=== PATIENT | female | born 1960 | race Hispanic/Latino ===

== ENCOUNTER 2018-03-28 13:22 | Outpatient (CLI) | payer BC ==
--- NOTE | 2018-03-28 14:17 | XRay Report ---
ROUTINE CHEST, TWO VIEWS: HISTORY: Cough. The trachea, heart, mediastinal contour, lung page and bony thorax are unremarkable. IMPRESSION: Unremarkable chest x-ray.
== END 2018-03-28 13:23 | disposition home or self-care (01) ==
LOC: SPVIMAG 13:22
PROVIDERS: ATTEND Nurse Practitioner
DX: R05 Cough (principal)
CPT/HCPCS: 71046